=== PATIENT | female | born 1985 | race Caucasian/White ===

== ENCOUNTER 2017-05-02 17:45 | Emergency (ER) | payer OTHER ==
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
[2017-05-02] MEDS ORDERED: Acetaminophen-Codeine 300-30mg TAB PO STA (19:32)
[2017-05-02 19:54] VITALS: BP 108/70; PULSE 62; RESP 16; TEMP 97.8
== END 2017-05-02 19:53 | disposition home or self-care (01) ==
LOC: EC 17:45
DX: S00.83XA Contusion of other part of head, initial encounter (principal); S60.222A Contusion of left hand, initial encounter; Z88.5 Allergy status to narcotic agent; Z88.6 Allergy status to analgesic agent; V43.52XA Car driver injured in collision with other type car in traffic accident, initial encounter
CPT/HCPCS: 70450; 70486; 99284

== ENCOUNTER 2018-02-23 08:15 | Emergency (ER) | payer OTHER ==
[2018-02-23] MEDS ORDERED: KETOROLAC 30 MG/ML 1 ML VIAL IVP STA (09:25)
[2018-02-23] MEDS ORDERED: diphenhydrAMINE 50 MG/ML 1 ML VIAL IVP STA (09:25)
[2018-02-23] MEDS ORDERED: SODIUM CHLORIDE 0.9% 1,000 ML IV STA (09:25)
[2018-02-23] MEDS ORDERED: METOCLOPRAMIDE 5 MG/ML 2 ML VIAL IVP STA (09:25)
--- NOTE | 2018-02-23 09:27 | ED ---
General Adult HPI - General Chief complaint: Headache Stated complaint: Headache Time Seen by Provider: 02/23/18 09:21 Source: patient, RN notes reviewed Mode of arrival: ambulatory Limitations: no limitations - History of Present Illness Initial comments: Patient 32-year-old female significant past medical history for migraines, presenting to the emergency room today with chief complaint of a migraine headache that started 3 days ago. She states located all over. She does admit to photosensitivity. Admits to nausea and got worse last night. She states the symptoms are consistent with migraines that she's had in the past. She denies anything different or new. Patient denies any recent fever, chills, shortness of breath, chest pain, back pain, abdominal pain, numbness or tingling , dysuria or hematuria, constipation or diarrhea, or any other complaints. - Related Data Home Medications Medication Instructions Recorded Confirmed Ibuprofen [Motrin Ib] 600 mg PO Q6H PRN 02/23/18 02/23/18 Previous Rx's Medication Instructions Recorded Acetaminophen-Codeine 300-30mg 1 tab PO Q4H PRN #20 tablet 05/02/17 [Tylenol #3] Allergies Allergy/AdvReac Type Severity Reaction Status Date / Time hydrocodone [From Vicodin] AdvReac VIOLENT Verified 02/23/18 08:59 Review of Systems ROS Statement: Those systems with pertinent positive or pertinent negative responses have been documented in the HPI. ROS Other: All systems not noted in ROS Statement are negative. Past Medical History Past Medical History: No Reported History Additional Past Medical History / Comment(s): migraines History of Any Multi-Drug Resistant Organisms: None Reported Past Surgical History: Tubal Ligation Past Psychological History: No Psychological Hx Reported Smoking Status: Never smoker Past Alcohol Use History: None Reported Past Drug Use History: None Reported General Exam - General Exam Comments Initial Comments: General: The patient is awake and alert, moderate distress. Eye: Pupils are equal, round and reactive to light, extra-ocular movements are intact. No nystagmus. There is normal conjunctiva bilaterally. No signs of icterus. Ears, nose, mouth and throat: There are moist mucous membranes and no oral lesions. Neck: The neck is supple, there is no tenderness or JVD. Cardiovascular: There is a regular rate and rhythm. No murmur, rub or gallop is appreciated. Respiratory: Lungs are clear to auscultation, respirations are non-labored, breath sounds are equal. No wheezes, stridor, rales, or rhonchi. Musculoskeletal: Normal ROM, no tenderness. Strength 5/5. Sensation intact. Pulses equal bilaterally 2+. Neurological: A&O x 3. CN II-XII intact, There are no obvious motor or sensory deficits. Coordination appears grossly intact. Speech is normal. Skin: Skin is warm and dry and no rashes or lesions are noted. Psychiatric: Cooperative, appropriate mood & affect, normal judgment. Limitations: no limitations Course Vital Signs 02/23/18 08:20 Temperature 98.8 F Pulse Rate 90 Respiratory 20 Rate Blood Pressure 130/76 O2 Sat by Pulse 100 Oximetry Medical Decision Making - Medical Decision Making Patient reexamined at the central no signs of distress. She presented to the emergency room with migraine headache is similar to migraines that she's had in the past. Patient was given Toradol, Reglan, Benadryl with IV fluids and is feeling much better at this time. Patient will be discharged home. Disposition Clinical Impression: Migraine Disposition: HOME SELF-CARE Condition: Good Instructions: Migraine Headache (ED) Additional Instructions: Please use ibuprofen for any rebound headaches. Please follow-up with family doctor in the next 2 days of symptoms have not improved. Please return to emergency room if the symptoms increase or worsen or for any other concerns. Is patient prescribed a controlled substance at d/c from ED?: No Referrals: Nicolas Schaffer MD [Primary Care Provider] - 1-2 days Time of Disposition: 11:23
[2018-02-23 11:32] VITALS: BP 104/51; PULSE 80; RESP 16; TEMP 98.9
== END 2018-02-23 11:31 | disposition home or self-care (01) ==
LOC: EC 08:15
DX: G43.909 Migraine, unspecified, not intractable, without status migrainosus (principal); Z88.5 Allergy status to narcotic agent
CPT/HCPCS: 99283; 96374; 96375 ×2; 96361; J1200; J2765; J1885

== ENCOUNTER 2021-02-08 08:42 | Day surgery (SDC) | payer OTHER ==
[2021-02-05 15:43] VITALS: BMI 25.6
[~2021-02-08 08:42] MED LIST: ACETAMINOPHEN TAB 500 MG TAB PO PRN; DEXAMETHASONE SOD PHOSPHATE 4 MG/ML 1 ML VIAL IV ONE; HEPARIN SODIUM,PORCINE/PF 5,000 UNIT/0.5 ML SYRINGE SQ PRN; LACTATED RINGERS 1,000 ML IV SCH; LIDOCAINE 1% (10MG/ML) FOR IV START INTRADERMA PRN; MIDAZOLAM 2 MG/2 ML VIAL IV PRN; ONDANSETRON 4 MG/2 ML VIAL IVP ONE
[2021-02-08] MEDS ORDERED: MIDAZOLAM 2 MG/2 ML VIAL ONE (10:22)
[2021-02-08] MEDS ORDERED: GLYCOPYRROLATE 0.2 MG/ML 2 ML VIAL ONE (10:22)
[2021-02-08] MEDS ORDERED: LIDOCAINE 1% INJ 10MG/ML (20 ML MDV) ONE (10:22)
[2021-02-08] MEDS ORDERED: fentaNYL (PF) 50 MCG/ML 2 ML AMP ONE (10:22)
[2021-02-08] MEDS ORDERED: KETOROLAC 15 MG/ML 1 ML VIAL ONE (10:22)
[2021-02-08] MEDS ORDERED: ROCURONIUM 10 MG/ML (5 ML VIAL) IV ONE (10:22)
[2021-02-08] MEDS ORDERED: HYDROmorphone (PF) 1 MG/ML ONE (10:22)
[2021-02-08] MEDS ORDERED: NEOSTIGMINE 1 MG/ML 10 ML VIAL ONE (10:22)
[2021-02-08] MEDS ORDERED: SUCCINYLCHOLINE CHLORIDE 100 MG/5 ML SYR IV ONE (10:22)
[2021-02-08] MEDS ORDERED: PROPOFOL 10 MG/ML 20 ML VIAL IV ONE (10:22)
[2021-02-08] MEDS ORDERED: BUPIVACAIN-EPI 0.5%-1:200,000 30 ML VIAL SQ ONE (10:26)
[2021-02-08] MEDS ORDERED: Acetaminophen-Codeine 300-30mg TAB PO PRN (11:20)
--- NOTE | 2021-02-08 11:23 | P.OP ---
Date of Procedure: 02/08/21 Procedure(s) Performed: PREOPERATIVE DIAGNOSIS: Biliary dyskinesia POSTOPERATIVE DIAGNOSIS: Same PROCEDURE: Laparoscopic cholecystectomy SURGEON: Chantal EBL: Minimal see anesthesia record ANESTHESIA: Gen. COMPLICATIONS: None OPERATIVE PROCEDURE: The patient was brought and placed on the operating room table in the supine position. The patient was placed under general anesthesia at that time. The abdomen was prepped and draped in the usual sterile fashion. A small vertical infraumbilical incision was made. The fascia was grasped with the Clarita forceps. The fascia was retracted anteriorly. The Veress needle was advanced into the peritoneal cavity. The saline drop test was normal. Insufflation took place up to 15 mmHg. A 5 mm optical trocar was advanced and the peritoneal cavity. 2 additional 5 mm trochars were placed in the right upper quadrant under direct visualization. A 12 mm trocar was advanced into the epigastric incision site. The gallbladder was retracted superiorly and laterally. The peritoneum overlying the infundibulum was bluntly dissected. The patient's cystic duct was visualized. The junction between the cystic duct common and hepatic duct was identified. The critical view of safety was achieved after blunt dissection. The cystic duct was then divided after p lacement of 2 12 mm clips on the patient's side and one on the specimen side. The cystic artery was identified and clipped as well. A small vessel was seen along the gallbladder fossa and clipped as well. The gallbladder was then removed from the liver bed using electrocautery. The gallbladder was then removed from the epigastric trocar site with an Endo Catch bag. The gallbladder fossa was irrigated with saline. There was no evidence of any bleeding or biliary drainage seen. The fascia at the 12 millimeter site was closed using a Luis A-Ronit 0 Vicryl stitch. The trochars were then removed. The skin at all 4 sites was closed using a 4-0 Monocryl stitch. Skin glue was utilized on the incision sites. At the end of this procedure the sponge and needle counts were correct. DISPOSITION: Stable to the recovery room
[2021-02-08] MEDS ORDERED: ONDANSETRON 4 MG/2 ML VIAL IVP ONE (11:32)
[2021-02-08 11:36] VITALS: TEMP 98.7
[2021-02-08] MEDS: HYDROmorphone 0.5 MG/0.5 ML SYRINGE IVP PRN ×3 (11:40→11:59)
[2021-02-08] MEDS ORDERED: ACETAMINOPHEN TAB 325 MG TAB PO SCH (12:00)
[2021-02-08 13:14] VITALS: RESP 16
[2021-02-08] MEDS ORDERED: SCOPOLAMINE 1.5MG/72HR PATCH TRANSDERM ONE (13:34)
[2021-02-08 13:41] VITALS: BP 116/77; PULSE 58
[2021-02-08] MEDS ORDERED: IBUPROFEN 600 MG TAB PO SCH (14:30)
== END 2021-02-08 14:23 | disposition home or self-care (01) ==
LOC: OR 08:42
PROVIDERS: ATTEND Surgery
DX: K81.1 Chronic cholecystitis (principal); Z79.899 Other long term (current) drug therapy; F41.9 Anxiety disorder, unspecified; F32.9 Major depressive disorder, single episode, unspecified; G43.909 Migraine, unspecified, not intractable, without status migrainosus; Z98.51 Tubal ligation status; Z88.5 Allergy status to narcotic agent
CPT/HCPCS: 81025; 88304; 47562; J2250; J1100; J2710; J0690; J2405; J2001; J3010; J1170 ×2; J1885; J0330; J2704; J1644

== ENCOUNTER 2021-08-14 14:54 | Emergency (ER) | payer OTHER ==
[2021-08-14] MEDS ORDERED: ONDANSETRON 4 MG/2 ML VIAL IVP STA (16:04)
[2021-08-14] MEDS ORDERED: KETOROLAC 15 MG/ML 1 ML VIAL IVP STA (16:04)
[2021-08-14] MEDS ORDERED: SODIUM CHLORIDE 0.9% 1,000 ML IV STA (16:04)
[2021-08-14] MEDS ORDERED: FAMOTIDINE 20 MG/2 ML VIAL IV STA (16:05)
--- NOTE | 2021-08-14 16:10 | ED ---
General Adult HPI - General Chief complaint: Abdominal Pain Stated complaint: Abd Pain Time Seen by Provider: 08/14/21 15:56 Source: patient, RN notes reviewed, old records reviewed Mode of arrival: ambulatory Limitations: no limitations - History of Present Illness Initial comments: I evaluated the patient and she was placed in a room. Patient is a 36-year-old female with past medical history remarkable for cholecystectomy, ovarian cyst, tubal ligation who presents emergency Department complaining of worsening right lower quadrant abdominal pain associated with nausea and vomiting. She scribes as sharp, achy pain that originally started last night near her belly button and has since radiated to her right lower quadrant. She states has not improved and originally presented to the urgent care. They obtained a urinalysis and eventually discharged patient to follow up at the hospital for evaluation for possible appendicitis. The provide her with no diagnosis. Patient states the pain started last night and his symptoms get worse. Denies any fevers, chills, sick contacts. Denies any COVID-19 exposures. She does endorse nausea but den ies any episodes of emesis. Denies any vaginal discharge, bleeding. Denies any dysuria, hematuria. Denies any constipation. Denies any blood in her stool. She otherwise has no acute complaints at this time. She presents for evaluation for possible appendicitis. She denies any back pain. - Related Data Previous Rx's Medication Instructions Recorded Sulfamethox-Tmp 800-160Mg [Bactrim 1 tab PO Q12HR 7 Days #14 tab 08/14/21 DS 800-160 mg] Tamsulosin HCl [Flomax] 0.4 mg PO DAILY 7 Days #7 capsule 08/14/21 Allergies Allergy/AdvReac Type Severity Reaction Status Date / Time hydrocodone [From Vicodin] AdvReac verbally Verified 08/14/21 16:21 violent Review of Systems ROS Statement: Those systems with pertinent positive or pertinent negative responses have been documented in the HPI. Review of Systems: CONST: Denies fever EYES: Denies blurry vision ENT: Denies nasal congestion C/V: Denies Chest pain RESP: Denies shortness of breath GI: Endorses abdominal pain, nausea : Denies dysuria SKIN: Denies rash. MSK: Denies joint pain. NEURO: Denies headache ROS Other: All systems not noted in ROS Statement are negative. Past Medical History Past Medical History: No Reported History Additional Past Medical History / Comment(s): having intermittent abdominal pain and nausea,hx migraines History of Any Multi-Drug Resistant Organisms: None Reported Past Surgical History: Cholecystectomy, Tubal Ligation Past Anesthesia/Blood Transfusion Reactions: No Reported Reaction Past Psychological History: Anxiety Smoking Status: Former smoker Past Alcohol Use History: None Reported Past Drug Use History: None Reported - Past Family History Mother Family Medical History: No Reported History General Exam - General Exam Comments Initial Comments: General: Appears in mild to moderate distress secondary to abdominal pain. HEAD: Normal with no signs of head trauma. EYES: PERRLA, EOMI, conjunctiva normal, no discharge. ENT: Hearing grossly intact, normal oropharynx. RESPIRATORY: Clear breath sounds bilaterally. No wheezes, rales, or rhonchi. C/V: Regular rate and rhythm. S1 and S2 auscultated, no edema, peripheral pulses 2+ and intact throughout ABD: Abdomen soft, nondistended. Patient is tender to palpation in the right l ower quadrant and suprapubically. Roving sign is positive. McBurney's point is positive. There is no back pain or CVA tenderness to percussion. EXT: Normal range of motion, no obvious deformity SKIN: No rashes or lesions observed on exposed skin. NEURO: Alert and oriented 4. No focal deficits. Limitations: no limitations Course Vital Signs 08/14/21 08/14/21 08/14/21 15:26 18:50 20:41 Temperature 98.6 F 98.1 F Pulse Rate 67 78 66 Respiratory 20 18 18 Rate Blood Pressure 130/78 114/69 111/74 O2 Sat by Pulse 100 99 100 Oximetry Medical Decision Making - Medical Decision Making Based on patient's presentation and physical exam, I'm concerned for acute intra-abdominal process for the patient, with primary concerned for possible appendicitis versus UTI versus ovarian torsion. We will obtain abdominal laboratory studies as well as a pelvic ultrasound to evaluate for ovarian torsion. We will also obtain a CT of the pelvis with contrast to evaluate for appendicitis. Basic laboratory studies will also be obtained. Patient declines opiates for analgesia and therefore will be administered Toradol as well as IV Pepcid, Zofran, 1 L fluid bolus. Patient was in agreement this plan. Patient's ultrasound was negative for torsion. Laboratory studies were remarkable for a negative test. Urinalysis is concerning for dehydration as well as positive nitrites the setting of suprapubic abdominal discomfort. There is [address] abdomen and pelvis revealed a nonobstructing right lower nephrolithiasis and no signs of acute intra-abdominal process otherwise. On reevaluation, patient is feeling improved. We discussed that she has kidney stone and a questionable UTI and therefore we will treat the UTI as well as pr ovide her with Flomax for home for her kidney stone. She was in agreement this plan. I will give her follow-up with urology. I will provide the patient with a prescription for Bactrim, Flomax. I instructed the patient to follow up with their PCP in the next 3 days. [I provided contact information for follow up with] urology. I explained that the patient should return to the emergency department if they experience any worsening symptoms. Strict return precautions were discussed with the patient. The patient expressed understanding of these instructions. I answered all questions that the patient had. The patient was discharged home in fair condition with their prescriptions and follow up information. - Lab Data Result diagrams: 08/14/21 16:32 08/14/21 16:32 Lab Results 08/14/21 08/14/21 08/14/21 Range/Units 16:32 16:32 16:32 WBC 8.6 (3.8-10.6) k/uL RBC 4.45 (3.80-5.40) m/uL Hgb 12.2 (11.4-16.0) gm/dL Hct 37.2 (34.0-46.0) % MCV 83.7 (80.0-100.0) fL MCH 27.5 (25.0-35.0) pg MCHC 32.9 (31.0-37.0) g/dL RDW 14.0 (11.5-15.5) % Plt Count 240 (150-450) k/uL MPV 8.9 Neutrophils % 70 % Lymphocytes % 24 % Monocytes % 3 % Eosinophils % 2 % Basophils % 1 % Neutrophils # 6.0 (1.3-7.7) k/uL Lymphocytes # 2.1 (1.0-4.8) k/uL Monocytes # 0.3 (0-1.0) k/uL Eosinophils # 0.2 (0-0.7) k/uL Basophils # 0.1 (0-0.2) k/uL PT 10.9 (9.0-12.0) sec INR 1.0 (<1.2) APTT 21.9 L (22.0-30.0) sec Sodium (137-145) mmol/L Potassium (3.5-5.1) mmol/L Chloride (98-107) mmol/L Carbon Dioxide (22-30) mmol/L Anion Gap mmol/L BUN (7-17) mg/dL Creatinine (0.52-1.04) mg/dL Est GFR (CKD-EPI)AfAm (>60 ml/min/1.73 sqM) Est GFR (CKD-EPI)NonAf (>60 ml/min/1.73 sqM) Glucose (74-99) mg/dL Calcium (8.4-10.2) mg/dL Total Bilirubin (0.2-1.3) mg/dL AST (14-36) U/L ALT (4-34) U/L Alkaline Phosphatase (38-126) U/L Total Protein (6.3-8.2) g/dL Albumin (3.5-5.0) g/dL Amylase (30-110) U/L Lipase (23-300) U/L HCG, Qual Urine Color Light Yellow Urine Appearance Clear (Clear) Urine pH 7.0 (5.0-8.0) Ur Specific [place] 1.038 H (1.001-1.035) Urine Protein Negative (Negative) Urine Glucose (UA) Negative (Negative) Urine Ketones 2+ H (Negative) Urine Blood Negative (Negative) Urine Nitrite Positive H (Negative) Urine Bilirubin Negative (Negative) Urine Urobilinogen <2.0 (<2.0) mg/dL Ur Leukocyte Esterase Negative (Negative) Urine RBC 1 (0-5) /hpf Urine WBC 2 (0-5) /hpf Ur Squamous Epith Cells 3 (0-4) /hpf Blood Type Blood Type Recheck Bld Type Recheck Status Antibody Screen Spec Expiration Date 08/14/21 08/14/21 Range/Units 16:32 16:32 WBC (3.8-10.6) k/uL RBC (3.80-5.40) m/uL Hgb (11.4-16.0) gm/dL Hct (34.0-46.0) % MCV (80.0-100.0) fL MCH (25.0-35.0) pg MCHC (31.0-37.0) g/dL RDW (11.5-15.5) % Plt Count (150-450) k/uL MPV Neutrophils % % Lymphocytes % % Monocytes % % Eosinophils % % Basophils % % Neutrophils # (1.3-7.7) k/uL Lymphocytes # (1.0-4.8) k/uL Monocytes # (0-1.0) k/uL Eosinophils # (0-0.7) k/uL Basophils # (0-0.2) k/uL PT (9.0-12.0) sec INR (<1.2) APTT (22.0-30.0) sec Sodium 136 L (137-145) mmol/L Potassium 4.1 (3.5-5.1) mmol/L Chloride 101 (98-107) mmol/L Carbon Dioxide 24 (22-30) mmol/L Anion Gap 11 mmol/L BUN 13 (7-17) mg/dL Creatinine 0.59 (0.52-1.04) mg/dL Est GFR (CKD-EPI)AfAm >90 (>60 ml/min/1.73 sqM) Est GFR (CKD-EPI)NonAf >90 (>60 ml/min/1.73 sqM) Glucose 82 (74-99) mg/dL Calcium 10.0 (8.4-10.2) mg/dL Total Bilirubin 0.8 (0.2-1.3) mg/dL AST 41 H (14-36) U/L ALT 25 (4-34) U/L Alkaline Phosphatase 81 (38-126) U/L Total Protein 8.4 H (6.3-8.2) g/dL Albumin 5.1 H (3.5-5.0) g/dL Amylase 46 (30-110) U/L Lipase 52 (23-300) U/L HCG, Qual Not Detected Urine Color Urine Appearance (Clear) Urine pH (5.0-8.0) Ur Specific [place] (1.001-1.035) Urine Protein (Negative) Urine Glucose (UA) (Negative) Urine Ketones (Negative) Urine Blood (Negative) Urine Nitrite (Negative) Urine Bilirubin (Negative) Urine Urobilinogen (<2.0) mg/dL Ur Leukocyte Esterase (Negative) Urine RBC (0-5) /hpf Urine WBC (0-5) /hpf Ur Squamous Epith Cells (0-4) /hpf Blood Type A Positive Blood Type Recheck A Pos Bld Type Recheck Status No Antibody Screen NEGATIVE Spec Expiration Date 08/17/2021 - 2331 Disposition Clinical Impression: UTI (urinary tract infection), Nephrolithiasis Disposition: HOME SELF-CARE Condition: Fair Instructions (If sedation given, give patient instructions): Kidney Stones (ED) Prescriptions: Sulfamethox-Tmp 800-160Mg [Bactrim DS 800-160 mg] 1 tab PO Q12HR 7 Days #14 tab Tamsulosin HCl [Flomax] 0.4 mg PO DAILY 7 Days #7 capsule Is patient prescribed a controlled substance at d/c from ED?: No Referrals: Nicolas Schaffer MD [Primary Care Provider] - 1-2 days Jack Covarrubias MD [STAFF PHYSICIAN] - 1-2 days
--- NOTE | 2021-08-14 17:12 | US ---
EXAMINATION TYPE: US pelvic complete DATE OF EXAM: 08/14/2021 COMPARISON: NONE CLINICAL HISTORY: Right adnexal pain, evaluate for torsion. Right pelvic pain x 2 days TECHNIQUE: Transvaginal ER exam. Date of LMP: 07/28/2021 EXAM MEASUREMENTS: Uterus: 7.8 x 4.4 x 5.7 cm Endometrial Stripe: 1.6 cm Right Ovary: 3.5 x 1.7 x 2.6 cm Left Ovary: 2.4 x 1.9 x 1.9 cm 1. Uterus: retroverted, normal. 2. Endometrium: Normal. 3. Right Ovary: Normal. Follicular changes. 4. Left Ovary: Normal. Follicular changes. Spectral, color and waveform doppler imaging shows good arterial and venous flow within the ovaries ; there is no evidence for ovarian torsion. 5. Bilateral Adnexa: Normal. 6. Posterior cul-de-sac: Small free fluid. IMPRESSION: 1. No evidence of ovarian torsion bilaterally. 2. Small volume pelvic free fluid may be physiologic. 3. Normal appearance of the bilateral ovaries and uterus.
[2021-08-14 17:25] LABS: Basophils # (A) 0.1 k/uL (0-0.2); Basophils % (A) 1 %; Eosinophils # (A) 0.2 k/uL (0-0.7); Eosinophils % (A) 2 %; HCT 37.2 % (34.0-46.0); HGB 12.2 gm/dL (11.4-16.0); Lymphocytes # (A) 2.1 k/uL (1.0-4.8); Lymphocytes % (A) 24 %; MCH 27.5 pg (25.0-35.0); MCHC 32.9 g/dL (31.0-37.0); MCV 83.7 fL (80.0-100.0); Mean Platelet Volume 8.9; Monocytes # (A) 0.3 k/uL (0-1.0); Monocytes % (A) 3 %; Neutrophils % (A) 70 %; Platelet Count 240 k/uL (150-450); RBC 4.45 m/uL (3.80-5.40); WBC 8.6 k/uL (3.8-10.6)
[2021-08-14 17:34] LABS: ALT 25 U/L (4-34); AST 41 U/L (14-36); African American GFR (CKD) >90 (>60 ml/min/1.73 sqM); Albumin 5.1 g/dL (3.5-5.0); Alkaline Phosphatase 81 U/L (38-126); Amylase 46 U/L (30-110); Anion Gap 11 mmol/L; Blood Urea Nitrogen 13 mg/dL (7-17); Carbon Dioxide 24 mmol/L (22-30); Chloride 101 mmol/L (98-107); Glucose 82 mg/dL (74-99); Lipase 52 U/L (23-300); Non-African American GFR(CKD) >90 (>60 ml/min/1.73 sqM); Sodium 136 mmol/L (137-145); Total Bilirubin 0.8 mg/dL (0.2-1.3); Total Protein 8.4 g/dL (6.3-8.2)
[2021-08-14 17:36] LABS: HCG,Qualitative Serum Not Detected
[2021-08-14 17:38] LABS: Potassium 4.1 mmol/L (3.5-5.1)
[2021-08-14 17:45] LABS: Partial Thromboplastin Time 21.9 sec (22.0-30.0); Prothrombin Time 10.9 sec (9.0-12.0)
[2021-08-14] MEDS ORDERED: diphenhydrAMINE 25 MG CAP PO STA (18:26)
[2021-08-14] MEDS ORDERED: METOCLOPRAMIDE 5 MG/ML 2 ML VIAL IVP STA (18:26)
[2021-08-14 18:44] LABS: Appearance,Urine Clear (Clear); Bilirubin,Urine Negative (Negative); Blood,Urine Negative (Negative); Color,Urine Light Yellow; Glucose,Urine (UA) Negative (Negative); Ketones,Urine 2+ (Negative); Leukocyte Esterase,Urine Negative (Negative); Nitrite,Urine Positive (Negative); Protein,Urine Negative (Negative); RBC,Urine 1 /hpf (0-5); Specific Gravity,Urine 1.038 (1.001-1.035); Squamous Epithelial Cell,Urine 3 /hpf (0-4); Urobilinogen,Urine <2.0 mg/dL (<2.0); WBC,Urine 2 /hpf (0-5)
--- NOTE | 2021-08-14 19:24 | CT ---
EXAMINATION TYPE: CT abdomen pelvis w con DATE OF EXAM: 08/14/2021 COMPARISON: None HISTORY: Generalized pain with nausea CT DLP: 705.3 mGycm Automated exposure control for dose reduction was used. TECHNIQUE: Helical acquisition of images was performed from the lung bases through the pelvis. CONTRAST: Performed without Oral Contrast and with IV Contrast, patient injected with 100 mL of Isovue 300. FINDINGS: LUNG BASES: Normal. LIVER: Normal. BILIARY SYSTEM: Status post cholecystectomy. PANCREAS: Normal. SPLEEN: Normal. ADRENALS: Normal. KIDNEYS: No hydronephrosis bilaterally. Nonobstructing 2 mm right nephrolithiasis. BOWEL: No evidence of bowel obstruction or thickening. Normal appendix. PERITONEUM: No pneumoperitoneum. No free fluid. LYMPH NODES: No lymphadenopathy. PELVIS: Normal. VASCULATURE: No abdominal aortic aneurysm. MUSCULOSKELETAL: No acute osseous abnormality. IMPRESSION: 1. No acute abdominopelvic process. 2. Nonobstructing right nephrolithiasis.
[2021-08-14 19:25] VITALS: RESP 18; TEMP 98.1
[2021-08-14] MEDS ORDERED: SULFAMETHOX-TMP 800-160MG 1 EACH TAB PO STA (20:02)
[2021-08-14 20:44] VITALS: BP 111/74; PULSE 66
== END 2021-08-14 20:45 | disposition home or self-care (01) ==
LOC: EC 14:54
DX: N39.0 Urinary tract infection, site not specified (principal); N20.0 Calculus of kidney; Z90.49 Acquired absence of other specified parts of digestive tract; Z87.891 Personal history of nicotine dependence; Z88.5 Allergy status to narcotic agent
CPT/HCPCS: 36415; 86900; 86901; 80053; 82150; 83690; 85025; 85610; 85730; 86850; 81001; 84703; 93975; 76830; 74177; 99285; 96374; 96375; J2765; J2405; J1885; Q9967